=== PATIENT | male | born 1975 | race Caucasian/White ===

== ENCOUNTER 2020-10-27 23:09 | Emergency (ER) | payer BC ==
--- OUTSIDE RECORDS SUMMARY | 2020-10-28 00:21 | XMS REPORT | Continuity of Care Document ---
:[address] [facility] t Address [address] [place] [address] Care Team Providers Name Role Phone Shani White Attending Clinician [phone] Cathy Larsen DO Attending Clinician Problems This patient has no known problems. Allergies, Adverse Reactions, Alerts This patient has no known allergies or adverse reactions. Medications Ordered Filled Start Stop Current Ordering Indication Dosage Frequency Signature Comments Components Source Medication Medication Date Date Medication? Clinician (SIG) Name Name Vitamin D Vitamin D Yes Imani 1 tablet [facility] Procedures This patient has no known procedures. Encounters Start End Encounter Admission Attending Care Care Encounter Source Date/Time Date/Time Type Type Clinicians Facility Department ID 2020-10-25 2020-10-25 Emergency E [facility] [address] [facility] 05:49:00 05:49:00 2020-10-09 2020-10-09 Outpatient [facility] [id number] 00:00:00 00:00:00 , Arcelia [id number] Shani [id number] 2020-10-04 2020-10-04 Emergency NITISH Larsen [id number] 11:59:00 14:16:00 Namita Damian [id number] [place] [id number] [place] [id number] 2020-09-27 2020-09-27 Outpatient [facility] da6 [id number] 00:00:00 00:00:00 , Arcelia [id number] Shani [id number] 2018-07-06 2018-07-06 Outpatient Harper Goldman [id number] [facility] [address] 11:28:00 11:28:00 t Specialty/U Yocasta kes - Specialty rology [facility]rology [facility] l Clinic Outpati ent Clinics 2018-06-25 2018-06-25 Outpatient Harper Goldman [id number] [facility] [address] 14:30:00 14:30:00 t Specialty/U Yocasta kes - Specialty rology [facility]Urology Clinic l Clinic Outpati ent Clinics Results This patient has no known results.
[2020-10-28 01:57] LABS: Basophils % 0.3 % (0-1.3); Hematocrit 46.8 % (39.6-49.0); Lymphocytes % 9.4 % (15.3-44.8); MPV 8.6 fL (7.6-11.3); RBC Red Blood Cell Count 5.39 M/uL (4.33-5.43)
[2020-10-28] MEDS ORDERED: NA CHLORIDE 0.9% 1,000 ML ONE (01:57)
[2020-10-28] MEDS ORDERED: ONDANSETRON 4 MG/2 ML VIAL ONE (01:57)
[2020-10-28 02:08] LABS: Albumin 4.1 g/dL (3.4-5.0); Bilirubin Direct 0.2 mg/dL (0-0.2); Bilirubin Total 0.8 mg/dL (0.2-1.0); Potassium 4.2 mmol/L (3.5-5.1); Protein, Total 8.6 g/dL (6.4-8.2)
[2020-10-28 03:26] LABS: Urine Blood Negative (Negative); Urine Glucose Negative (Negative); Urine Protein 3+ (Negative); Urine Specific Gravity >=1.030 (1.005-1.030); Urine pH 5.5 (5.0-7.0)
--- NOTE | 2020-10-28 04:14 | EDPHYS ---
Physician Documentation [facility] Name: Bradford Drake Age: 44 yrs Sex: Male : 1975 Arrival Date: 10/28/2020 Time: 00:12 Bed DIS19 Private MD: ED Physician Leonidas Cardenas HPI: 10/28 02:04 This 44 yrs old Male presents to ER via Ambulatory with complaints of Nausea, mh7 Vomiting. 02:04 The patient presents to the emergency department with nausea, that is moderate, mh7 vomiting, that is intermittent, described as clear fluid. Onset: The symptoms/episode began/occurred 3 day(s) ago. Possible causes: unknown. The symptoms are aggravated by food , The symptoms are alleviated by nothing. Associated signs and symptoms: Pertinent positives: Pertinent negatives: abdominal pain, anorexia, belching, constipation, diarrhea, dysuria, fever, flatulence, GI bleeding, hematuria. Severity of symptoms: At their worst the symptoms were moderate yesterday, in the emergency department the symptoms have improved moderately. Historical: - Allergies: 01:04 No Known Allergies; em - PMHx: 01:04 Hypertensive disorder; em - PSHx: 01:04 None; em - Immunization history:: Client reports receiving the 2nd dose of the Covid vaccine. - Social history:: Smoking status: Patient denies any tobacco usage or history of. ROS: 02:04 Constitutional: Negative for fever, chills, and weight loss, Eyes: Negative for injury, mh7 pain, redness, and discharge, ENT: Negative for injury, pain, and discharge, Neck: Negative for injury, pain, and swelling, Cardiovascular: Negative for chest pain, palpitations, and edema, Respiratory: Negative for shortness of breath, cough, wheezing, and pleuritic chest pain, Back: Negative for injury and pain, : Negative for injury, bleeding, discharge, and swelling, MS/Extremity: Negative for injury and deformity, Skin: Negative for injury, rash, and discoloration, Neuro: Negative for headache, weakness, numbness, tingling, and seizure, Psych: Negative for depression, anxiety, suicide ideation, homicidal ideation, and hallucinations, Allergy/Immunology: Negative for hives, rash, and allergies, Endocrine: Negative for neck swelling, polydipsia, polyuria, polyphagia, and marked weight changes, Hematologic/Lymphatic: Negative for swollen nodes, abnormal bleeding, and unusual bruising. Exam: 02:04 Constitutional: This is a well developed, well nourished patient who is awake, alert, mh7 and in no acute distress. Head/Face: Normocephalic, atraumatic. Eyes: Pupils equal round and reactive to light, extra-ocular motions intact. Lids and lashes normal. Conjunctiva and sclera are non-icteric and not injected. Cornea within normal limits. Periorbital areas with no swelling, redness, or edema. Neck: Trachea midline, no thyromegaly or masses palpated, and no cervical lymphadenopathy. Supple, full range of motion without nuchal rigidity, or vertebral point tenderness. No Meningismus. Chest/axilla: Normal chest wall appearance and motion. Nontender with no deformity. No lesions are appreciated. Cardiovascular: Regular rate and rhythm with a normal S1 and S2. No gallops, murmurs, or rubs. Normal PMI, no JVD. No pulse deficits. Respiratory: Lungs have equal breath sounds bilaterally, clear to auscultation and percussion. No rales, rhonchi or wheezes noted. No increased work of breathing, no retractions or nasal flaring. 02:04 Back: No spinal tenderness. No costovertebral tenderness. Full range of motion. Skin: Warm, dry with normal turgor. Normal color with no rashes, no lesions, and no evidence of cellulitis. MS/ Extremity: Pulses equal, no cyanosis. Neurovascular intact. Full, normal range of motion. Neuro: Awake and alert, GCS 15, oriented to person, place, time, and situation. Cranial nerves II-XII grossly intact. Motor strength 5/5 in all extremities. Sensory grossly intact. Cerebellar exam normal. Normal gait. Psych: Awake, alert, with orientation to person, place and time. Behavior, mood, and affect are within normal limits. 02:04 Abdomen/GI: Inspection: abdomen appears normal, Bowel sounds: normal, in all quadrants, Palpation: moderate abdominal tenderness, in the suprapubic area, right lower quadrant and left lower quadrant, mass, is not appreciated, rebound tenderness, is not appreciated, voluntary guarding, is not appreciated, involuntary guarding, is not appreciated, no appreciated organomegaly, Rectal exam: the exam is deferred, because of patient request, Indicators: McBurney's point is not tender, Joya's sign is negative, Rovsing's sign is negative, Obturator sign is negative, Psoas sign is negative, Liver: no appreciated palpable abnormalities, Hernia: not appreciated. Vital Signs: 01:02 BP 125 / 110; Pulse 107; Resp 18; Temp 97.7; Pulse Ox 100% on R/A; Weight 83.01 kg; em Height 5 ft. 8 in. (172.72 cm); 04:02 BP 128 / 90; Pulse 87; Resp 17; Temp 97.8; Pulse Ox 99% ; ea 01:02 Body Mass Index 27.82 (83.01 kg, 172.72 cm) em MDM: 03:55 Differential diagnosis: Nonspecific abd pain, gastritis, cholecystitis, pancreatitis, mh7 appendicitis, diverticulitis, viral gastroenteritis. Data reviewed: vital signs, nurses notes, lab test result(s), CBC, electrolytes, radiologic studies, CT scan. Data interpreted: Pulse oximetry: on room air is 100 %. Interpretation: normal. 04:10 Counseling: I had a detailed discussion with the patient and/or guardian regarding: the [facility] historical points, exam findings, and any diagnostic results supporting the discharge/admit diagnosis, lab results, radiology results, to return to the emergency department if symptoms worsen or persist or if there are any questions or concerns that arise at home. Response to treatment: the patient's symptoms have resolved after treatment, the patient's blood pressure is in an acceptable range, mental status has returned to baseline, the patient no longer shows bradycardia, the patient is not short of breath, the patient is not tachycardic, the patient's pain is gone, the patient's temperature has normalized. Refusal of service: The patient/guardian displays adequate decision making capability and despite a detailed discussion of alternatives, benefits, risks, and consequences refuses: Admission to the hospital for further work-up and treatment, EKG. 04:13 Patient medically screened. [facility] 10/28 01:15 Order name: Basic Metabolic Panel; Complete Time: 02:09 10/28 01:15 Order name: CBC with Diff; Complete Time: 02:02 10/28 01:15 Order name: Hepatic Function; Complete Time: 02:09 10/28 01:15 Order name: Lipase; Complete Time: 02:09 10/28 02:09 Order name: CT Abd/Pelvis - IV Contrast Only [facility] 10/28 03:26 Order name: Urine Dipstick-Ancillary; Complete Time: 03:29 [facility] 10/28 01:15 Order name: IV Saline Lock; Complete Time: 01:15 10/28 01:15 Order name: Labs collected and sent; Complete Time: 01:15 10/28 01:55 Order name: Urine Dipstick-Ancillary (obtain specimen) [facility] 10/28 02:09 Order name: EKG - Nurse/Tech [facility] Administered Medications: 01:37 Drug: Zofran (Ondansetron) 4 mg Route: IVP; Site: left antecubital; bb 04:26 Follow up: Response: No adverse reaction ea 01:37 Drug: NS 0.9% 1000 ml Route: IV; Rate: 1 bolus; Site: left antecubital; bb 04:26 Follow up: Response: No adverse reaction; IV Status: Completed infusion; IV Intake: ea 1000ml Disposition Summary: 10/28/20 04:13 Discharge Ordered Location: Home [facility] Problem: new [facility] Symptoms: have improved [facility] Condition: Stable [facility] Diagnosis - Acute Pancreatitis [facility] Followup: [facility] - With: Private Physician - When: 1 - 2 days - Reason: Worsening of condition, Recheck today's complaints, Continuance of care, Re-evaluation by your physician Followup: [facility] - With: Shamar Mejia MD - When: 1 - 2 days - Reason: Worsening of condition, Recheck today's complaints Discharge Instructions: - Discharge Summary Sheet [facility] - Acute Pancreatitis, [id number]-[id number] [facility] - Clear Liquid Diet, Adult, Amym-tu-Rare [facility] Forms: - Work release form ea - Medication Reconciliation Form [facility] - Thank You Letter [facility] - Antibiotic Education [facility] - Prescription Opioid Use [facility] Prescriptions: - ondansetron 4 mg Oral tablet,disintegrating - place 1 tablet by TRANSLINGUAL route every 8 hours As needed; 10 tablet; 7 Refills: 0, Product Selection Permitted - Tramadol 50 mg Oral Tablet - take 1 tablet by ORAL route every 8 hours as needed; 12 tablet; Refills: 0, [facility] Product Selection Permitted Signatures: Dispatcher [employer] Mathew Villeda, RN RN em Kenisha Ware RN RN Leonidas Gomez MD MD mh7 Lily King RN ea Corrections: (The following items were deleted from the chart) 01:05 01:04 Allergies: No Known Allergies; em em 01:05 01:04 PMHx: None; em em
--- NOTE | 2020-10-28 04:14 | ER ---
Nurse's Notes [facility] Name: Bradford Drake Age: 44 yrs Sex: Male : 1975 Arrival Date: 10/28/2020 Time: 00:12 Bed DIS19 Private MD: Diagnosis: Acute Pancreatitis Presentation: 10/28 01:02 Chief complaint: Patient states: N/V and lower abdominal pain for 2 days, denies fever. em Coronavirus screen: Client denies travel out of the [place] in the last 14 days. Ebola Screen: Patient negative for fever greater than or equal to 101.5 degrees Fahrenheit, and additional compatible Ebola Virus Disease symptoms Patient denies exposure to infectious person. Patient denies travel to an Ebola-affected area in the 21 days before illness onset. No symptoms or risks identified at this time. Initial Sepsis Screen: Does the patient meet any 2 criteria? HR > 90 bpm. Does the patient have a suspected source of infection? No. Patient's initial sepsis screen is negative. Risk Assessment: Do you want to hurt yourself or someone else? Patient reports no desire to harm self or others. Onset of symptoms was October 28, 2020. 01:02 Method Of Arrival: Ambulatory em 01:02 Acuity: GISELA 3 em Historical: - Allergies: 01:04 No Known Allergies; em - PMHx: 01:04 Hypertensive disorder; em - PSHx: 01:04 None; em - Immunization history:: Client reports receiving the 2nd dose of the Covid vaccine. - Social history:: Smoking status: Patient denies any tobacco usage or history of. Screenin/13 01:02 Abuse screen:. Nutritional screening: No deficits noted. Tuberculosis screening: No em symptoms or risk factors identified. Fall Risk None identified. Assessment: 01:02 General: Appears in no apparent distress. uncomfortable, ill, Behavior is calm, em cooperative, appropriate for age. Pain: Complains of pain in left lower quadrant and right lower quadrant Pain does not radiate. Pain began 2-3 days ago. Neuro: Level of Consciousness is awake, alert, obeys commands, Oriented to person, place, time, situation. Cardiovascular: Capillary refill < 3 seconds Patient's skin is warm and dry. Respiratory: Airway is patent Respiratory effort is even, unlabored, Respiratory pattern is regular, symmetrical. GI: Abdomen is round non-distended, Reports nausea, vomiting. Derm: Skin is intact, is healthy with good turgor, Skin is pink, warm \T\ dry. Musculoskeletal: Capillary refill < 3 seconds, Range of motion: intact in all extremities. Vital Signs: 10/28 01:02 BP 125 / 110; Pulse 107; Resp 18; Temp 97.7; Pulse Ox 100% on R/A; Weight 83.01 kg; em Height 5 ft. 8 in. (172.72 cm); 04:02 BP 128 / 90; Pulse 87; Resp 17; Temp 97.8; Pulse Ox 99% ; ea 01:02 Body Mass Index 27.82 (83.01 kg, 172.72 cm) em ED Course: 10/27 01:02 Patient has correct armband on for positive identification. Pulse ox on. NIBP on. em 01:02 Patient maintains SpO2 saturation greater than 95% on room air. em 10/28 00:12 Patient arrived in ED. cf2 01:04 Triage completed. em 01:04 Arm band placed on. em 01:15 Initial lab(s) drawn, by mo, sent to lab. Inserted saline lock: 20 gauge in left em antecubital area, using aseptic technique. Blood collected. 01:54 Leonidas Cardenas MD is Attending Physician. 7 02:51 CT Abd/Pelvis - IV Contrast Only In Process Unspecified. EDMS 04:03 No provider procedures requiring assistance completed. ea 04:12 Shamar Mejia MD is Referral Physician. mh7 04:25 IV discontinued, intact, bleeding controlled, No redness/swelling at site. Pressure ea dressing applied. Administered Medications: 01:37 Drug: Zofran (Ondansetron) 4 mg Route: IVP; Site: left antecubital; bb 04:26 Follow up: Response: No adverse reaction ea 01:37 Drug: NS 0.9% 1000 ml Route: IV; Rate: 1 bolus; Site: left antecubital; bb 04:26 Follow up: Response: No adverse reaction; IV Status: Completed infusion; IV Intake: ea 1000ml Intake: 04:26 IV: 1000ml; Total: 1000ml. ea Outcome: 04:13 Discharge ordered by . 7 04:25 Discharged to home ambulatory, with family. ea 04:25 Condition: stable 04:25 Discharge instructions given to patient, Instructed on discharge instructions, follow up and referral plans. medication usage, Demonstrated understanding of instructions, follow-up care, medications, Prescriptions given X 2. 04:26 Patient left the ED. thi Signatures: Dispatcher [employer] EDMathew Hernandez RN RN em Ballard, Brenda, RN RN bb Antunez, Elena, RN RN ea Frazier, Celesta 2 Leonidas Cardenas MD MD 7 Corrections: (The following items were deleted from the chart) 01:05 01:04 Allergies: No Known Allergies; em em 01:05 01:04 PMHx: None; em em
[2020-10-28 04:32] VITALS: BP 128/90; TEMP 97.8; O2SAT 99
--- NOTE | 2020-10-28 18:47 | RAD REPORT ---
EXAM DESCRIPTION: CT - Abdomen Pelvis W Contrast - 10/28/2020 6:30 am CLINICAL HISTORY: 44 years Male Abd pain; Nausea / vomiting TECHNIQUE: CT of the abdomen and pelvis using intravenous contrast. All CT scans at this facility us e dose modulation, iterative reconstruction, and/or weight based dosing when appropriate to reduce ra diation dose to as low as reasonably achievable. COMPARISON: None. FINDINGS: Lower chest: Incompletely imaged minimal groundglass opacities in the lingula, right middl e lobe and right lower lobe. Abdomen/Pelvis: Liver: No focal lesion. Gallbladder: No calcified stone. Pancreas: Mild stranding around the tail of the pancreas. Spleen: Calcified granuloma is present. Kidney: A 2 mm nonobstructing stone in the left kidney. No focal lesion. Adrenal glands: Within normal limits. Vascular structures: Unremarkable. Bowel: Diverticulosis without inflammatory changes. No bowel distention. Appendix: Normal. Peritoneum: No free fluid or free air. Lymph Nodes: No lymphadenopathy. Reproductive: Prostate is enlarged with calcifications.. Urinary bladder: Unremarkable. Osseous structures: Unremarkable. Soft tissues: Unremarkable. IMPRESSION: 1. Mild stranding around the tail of the pancreas suspicious for acute pancreatitis. 2. A 2 mm nonobstructing stone in the left kidney. 3. Incompletely imaged minimal groundglass opacities in the lingula, right middle lobe and right lo wer lobe. Findings could be related to viral pneumonia in the appropriate clinical setting. Electronically signed by: Adarsh French MD 10/28/2020 3:21 AM CDT Due to temporary technical issues with the PACS/Fluency reporting system, reports are being signed by the in house radiologists without review as a courtesy to insure prompt reporting. The interpreting radiologist is fully responsible for the content of the report.
== END 2020-10-28 04:26 | disposition home or self-care (01) ==
LOC: ER 23:09
DX: K85.90 Acute pancreatitis without necrosis or infection, unspecified (principal); I10 Essential (primary) hypertension
CPT/HCPCS: 96361; 85025; 80048; 36415; 80076; 81003; 83690; 74177; 96374; 99284; Q9967; J7030; J2405